=== PATIENT | male | born 1970 | race Caucasian/White ===

== ENCOUNTER 2020-09-14 16:25 | Inpatient (IN) | payer OTHER ==
[~2020-09-14] VITALS: Ht 180.3 cm; Wt 103.2 kg
[2020-09-14] MEDS ORDERED: HEPARIN 25,000 UNITS/250ML PMX 250 ML ONE (16:32)
--- NOTE | 2020-09-14 16:45 | NUR ---
PATIENT BIB EMS FROM [facility] FOR CHEST PAIN AND ELEVEATED TROPONIN AT 0.21. PER EMS PATIENT STARTED HAVING CHEST PAIN AROUND 1030 THIS MORNING THAT RADIATED TO BOTH ARMS. PATIENT FOUND TO HAVE ELEVATED TROPONIN AT ED IN [place], GIVEN 5,000 UNIT HEPARIN BOLUS AND STARTED ON HEPARIN DRIP AT 1000 UNITS PER HOUR. WAS GIVEN NITRO AND MORPHINE WHICH RELIEVED CHEST PAIN. PATIENT REPORTS CHEST PAIN IS A 1/10, CONNECTED TO MONITOR, VSS, 2 IV'S PLACED PRIOR TO ARRIVAL, FAMILY AT BEDSIDE. SPOKE WITH LORENA ABOUT HEPARIN DRIP, WOULD LIKE TO KEEP HEPARIN DRIP AT 1,000 UNITS PER HOUR.
[2020-09-14] MEDS ORDERED: SODIUM CHLORIDE FLUSH 10ML SYR IVF ONE (17:00)
[2020-09-14 17:03] LABS: ALBUMIN 3.1 g/dL (3.4-5.0); ANION GAP 16 mmol/L (5-15); CHLORIDE 106 mmol/L (98-107); CREATININE 0.85 mg/dL (0.7-1.3)
[2020-09-14] MEDS ORDERED: INSU100V8 SQ (17:15)
[2020-09-14] MEDS ORDERED: SIMV20TA19 PO (17:15)
[2020-09-14] MEDS ORDERED: DAPA10TA PO (17:15)
[2020-09-14] MEDS ORDERED: LISI-167 PO (17:15)
[2020-09-14] MEDS ORDERED: INSU100C SQ-INSULIN (17:15)
[2020-09-14 17:26] LABS: BASOPHILS % (AUTO) 0 % (0-1); EOSINOPHILS % (AUTO) 0 % (1-7); LYMPHOCYTES % (AUTO) 19 % (22-44); MEAN CORPUSCULAR HGB CONC 33.6 g/dL (33.2-36.2); MEAN PLATELET VOLUME 8.2 fL (7.4-10.4); MONOCYTES % (AUTO) 8 % (2-9); NEUTROPHILS % (AUTO) 73 % (42-75); PLATELET COUNT 263 x10^3/uL (130-400); RED BLOOD COUNT 4.84 x10^6/uL (4.38-5.82); RED CELL DISTRIBUTION WIDTH 13.3 % (9.4-14.8)
[2020-09-14] MEDS ORDERED: SODIUM CHLORIDE FLUSH 10ML SYR IVF PRN (17:30)
--- NOTE | 2020-09-14 17:33 | NUR ---
[facility] AT BEDSIDE FOR ADMISSION EVALUATION.
--- NOTE | 2020-09-14 17:55 | NUR ---
INSULIN PENS REQUESTED FROM PHARMACY.
[2020-09-14] MEDS ORDERED: ONDANSETRON 2MG/ML, 2ML IV PRN (18:00)
[2020-09-14] MEDS ORDERED: morphine SULFATE 10 MG/ML, 1ML IVPush PRN (18:00)
--- NOTE | 2020-09-14 18:03 | NUR ---
DINNER TRAY ORDERED.
--- NOTE | 2020-09-14 18:04 | NUR ---
PATIENT'S INITIAL ANTI-XA HERE IS 0.53, ACCORDING TO HEPARIN PROTOCOL NO CHANGE TO DRIP RATE AND NO BOLUS. ORDERED NEXT ANTI-XA FOR 6 HOURS.
--- NOTE | 2020-09-14 18:10 | NUR ---
REPORT GIVEN TO JEFFERY COX FOR TRANSFER OF PATIENT CARE.
--- NOTE | 2020-09-14 18:20 | NUR ---
PATIENT TRANSFERRED TO FLOOR VIA GURNEY IN STABLE CONDITION WITH DIRECTOR INSURANCE. FAMILY MEMBERS AT BESIDE.
[2020-09-14 18:42] VITALS: BP 156/91
[2020-09-14 18:49] LABS: CHOL/HDL RATIO 4.3; LDL/HDL RATIO 2.9 (0.5-3.0)
[2020-09-14] MEDS ORDERED: HEPARIN 5,000 UNITS/ML, 1ML IV ONE (19:00)
[2020-09-14] MEDS ORDERED: HEPARIN 5,000 UNITS/ML, 1ML IV PRN (19:00)
[2020-09-14] MEDS: INSULIN LISPRO 100 UNITS/ML, PEN SQ-INSULIN SCH ×2 (20:13→20:14)
[2020-09-14] MEDS: SODIUM CHLORIDE FLUSH 10ML SYR IVF SCH (20:14)
[2020-09-14] MEDS: INSULIN GLARGINE 100 UNITS/ML, PEN SQ-INSULIN SCH (20:23)
[2020-09-14] MEDS ORDERED: SIMVASTATIN 20 MG TABLET PO SCH (21:00)
[2020-09-15 00:13] VITALS: BP 156/90
[2020-09-15 05:05] LABS: BASOPHILS % (AUTO) 1 % (0-1); EOSINOPHILS % (AUTO) 2 % (1-7); LYMPHOCYTES % (AUTO) 26 % (22-44); MEAN CORPUSCULAR HEMOGLOBIN 32.5 pg (27.5-34.5); MEAN CORPUSCULAR HGB CONC 34.2 g/dL (33.2-36.2); MEAN PLATELET VOLUME 8.5 fL (7.4-10.4); MONOCYTES % (AUTO) 9 % (2-9); NEUTROPHILS % (AUTO) 62 % (42-75); PLATELET COUNT 249 x10^3/uL (130-400); RED CELL DISTRIBUTION WIDTH 13.3 % (9.4-14.8)
[2020-09-15 05:12] LABS: CHLORIDE 105 mmol/L (98-107)
[2020-09-15 05:23] LABS: ALANINE AMINOTRANSFERASE 32 U/L (12-78); ALBUMIN 2.8 g/dL (3.4-5.0); ALKALINE PHOSPHATASE 92 U/L (45-117); ANION GAP 11 mmol/L (5-15); BILIRUBIN,TOTAL 0.8 mg/dL (0.2-1.0); CREATININE 0.84 mg/dL (0.7-1.3)
[2020-09-15] MEDS: INSULIN LISPRO 100 UNITS/ML, PEN SQ-INSULIN SCH ×4 (07:36→21:10)
[2020-09-15] MEDS ORDERED: LISINOPRIL 10 MG TABLET PO SCH (09:00)
[2020-09-15 09:08] VITALS: BP 164/92
[2020-09-15] MEDS: SODIUM CHLORIDE FLUSH 10ML SYR IVF SCH ×2 (09:30→21:00)
[2020-09-15 11:59] LABS: ALANINE AMINOTRANSFERASE 40 U/L (12-78); ALBUMIN 3.2 g/dL (3.4-5.0); ANION GAP 13 mmol/L (5-15); CALCIUM 9.7 mg/dL (8.5-10.1); CHLORIDE 104 mmol/L (98-107); CREATININE 0.97 mg/dL (0.7-1.3)
[2020-09-15 12:04] LABS: ALKALINE PHOSPHATASE 101 U/L (45-117); TOTAL PROTEIN 6.9 g/dL (6.4-8.2)
[2020-09-15 14:00] VITALS: BP 137/87
[2020-09-15] MEDS: CARVEDILOL 3.125 MG TABLET PO SCH (17:28)
[2020-09-15] MEDS ORDERED: INSULIN LISPRO 100 UNITS/ML, PEN SQ-INSULIN SCH (21:00)
[2020-09-15 21:06] VITALS: BP 142/83
[2020-09-15] MEDS: INSULIN GLARGINE 100 UNITS/ML, PEN SQ-INSULIN SCH (21:10)
[2020-09-15] MEDS: ATORVASTATIN 80 MG TABLET PO SCH (21:11)
[2020-09-15] MEDS: LISINOPRIL 10 MG TABLET PO SCH (21:12)
[2020-09-16 00:12] VITALS: BP 134/86
[2020-09-16] MEDS: CARVEDILOL 3.125 MG TABLET PO SCH (05:10)
[2020-09-16 07:13] VITALS: BP 156/98
[2020-09-16] MEDS: LISINOPRIL 10 MG TABLET PO SCH ×2 (08:09→20:27)
[2020-09-16] MEDS: INSULIN LISPRO 100 UNITS/ML, PEN SQ-INSULIN SCH ×4 (08:10→20:28)
[2020-09-16] MEDS: SODIUM CHLORIDE FLUSH 10ML SYR IVF SCH ×2 (08:11→21:00)
[2020-09-16] MEDS: HEPARIN 25,000 UNITS/250ML PMX 250 ML IV PRN (09:22)
[2020-09-16] MEDS: ASPIRIN 81 MG TABLET EC PO SCH (10:45)
[2020-09-16 14:13] VITALS: BP 144/79
[2020-09-16 14:14] VITALS: BP_SYST 134; BP_SYST 144; BP_DIAS 81; BP_DIAS 83
[2020-09-16] MEDS: CARVEDILOL 6.25 MG TABLET PO SCH (17:38)
[2020-09-16 20:20] VITALS: BP 144/85
[2020-09-16] MEDS: ATORVASTATIN 80 MG TABLET PO SCH (20:27)
[2020-09-16] MEDS: ACETAMINOPHEN 325 MG TABLET PO PRN (20:27)
[2020-09-16] MEDS: INSULIN GLARGINE 100 UNITS/ML, PEN SQ-INSULIN SCH (20:28)
[2020-09-17 00:40] VITALS: BP 146/86
[2020-09-17 05:26] VITALS: BP 158/89
[2020-09-17] MEDS: ASPIRIN 81 MG TABLET EC PO SCH (05:28)
[2020-09-17] MEDS: CARVEDILOL 6.25 MG TABLET PO SCH ×2 (05:28→17:38)
[2020-09-17] MEDS: HEPARIN 25,000 UNITS/250ML PMX 250 ML IV PRN (06:09)
[2020-09-17 07:09] VITALS: BP 173/100
[2020-09-17] MEDS: INSULIN LISPRO 100 UNITS/ML, PEN SQ-INSULIN SCH ×4 (07:51→20:28)
[2020-09-17] MEDS: LISINOPRIL 10 MG TABLET PO SCH ×2 (07:51→20:30)
[2020-09-17] MEDS: SODIUM CHLORIDE FLUSH 10ML SYR IVF SCH ×2 (07:52→20:30)
[2020-09-17 09:15] VITALS: BP_SYST 146; BP_SYST 159; BP_DIAS 93; BP_DIAS 96
[2020-09-17] MEDS ORDERED: MIDAZOLAM 1 MG/ML, 5ML ONE ×2 (11:31→14:00)
[2020-09-17] MEDS ORDERED: FENTANYL PF 100 MCG/2ML ONE (11:31)
[2020-09-17] MEDS ORDERED: VERAPAMIL 2.5 MG/ML, 2ML ONE (11:32)
[2020-09-17] MEDS ORDERED: HEPARIN 1,000 UNITS/ML, 10ML ONE (11:32)
[2020-09-17] MEDS ORDERED: LIDOCAINE-MPF 1%, 5ML ONE (11:32)
[2020-09-17] MEDS ORDERED: TICAGRELOR 90 MG TABLET ONE (11:32)
[2020-09-17] MEDS ORDERED: BIVALIRUDIN 250 MG ONE ×2 (11:32→12:43)
[2020-09-17] MEDS ORDERED: PRASUGREL 10 MG TABLET ONE (13:10)
[2020-09-17] MEDS: ACETAMINOPHEN 325 MG TABLET PO PRN (13:45)
[2020-09-17] MEDS ORDERED: NITROGLYCERIN 0.4 MG/SPRAY SL PRN (14:00)
[2020-09-17] MEDS ORDERED: LIDOCAINE 1%, 20ML ONE (14:00)
[2020-09-17] MEDS ORDERED: FENTANYL PF 250 MCG/5ML ONE (14:00)
[2020-09-17] MEDS ORDERED: NITROGLYCERIN 0.4 MG BOTTLE (25 TABS) SL PRN (14:00)
[2020-09-17] MEDS ORDERED: BIVALIRUDIN 250 MG in SODIUM CHLORIDE 0.9% 50 ML IV SCH (14:00)
[2020-09-17 14:49] VITALS: BP 132/83
[2020-09-17 19:48] VITALS: BP 157/79
[2020-09-17] MEDS: ATORVASTATIN 80 MG TABLET PO SCH (20:30)
[2020-09-17] MEDS ORDERED: INSULIN GLARGINE 100 UNITS/ML, PEN SQ-INSULIN SCH (21:00)
[2020-09-18 01:13] VITALS: BP 141/84
[2020-09-18 04:49] LABS: ANION GAP 9 mmol/L (5-15); CALCIUM 8.5 mg/dL (8.5-10.1); CHLORIDE 112 mmol/L (98-107); CREATININE 0.78 mg/dL (0.7-1.3)
[2020-09-18] MEDS: ASPIRIN 81 MG TABLET EC PO SCH (05:14)
[2020-09-18] MEDS: CARVEDILOL 6.25 MG TABLET PO SCH (05:14)
[2020-09-18 07:31] VITALS: BP 150/95
[2020-09-18] MEDS: LISINOPRIL 10 MG TABLET PO SCH (08:02)
[2020-09-18] MEDS: SODIUM CHLORIDE FLUSH 10ML SYR IVF SCH (08:03)
[2020-09-18] MEDS: INSULIN LISPRO 100 UNITS/ML, PEN SQ-INSULIN SCH ×2 (08:03→11:00)
[2020-09-18] MEDS ORDERED: INSULIN GLARGINE 100 UNITS/ML, PEN SQ-INSULIN SCH (09:00)
[2020-09-18] MEDS ORDERED: PRASUGREL 10 MG TABLET PO SCH (09:00)
[2020-09-18] MEDS ORDERED: LISI-167 PO (10:38)
[2020-09-18] MEDS ORDERED: INSU100I13 SQ-INSULIN ×2 (10:38)
[2020-09-18] MEDS ORDERED: SIMV20TA19 PO (10:38)
[2020-09-18] MEDS ORDERED: PRAS10TA4 PO (10:38)
[2020-09-18] MEDS ORDERED: ASPI81TA45 PO (10:38)
[2020-09-18] MEDS ORDERED: CARV6.2512 PO (10:38)
== END 2020-09-18 12:08 | disposition home or self-care (01) | DRG 246 ==
LOC: ED 17:48 → EDIP 18:22 → 5SO 18:26 → DCLOUNGE 09-18 11:55
PROVIDERS: ADMIT Internal Medicine; ATTEND Internal Medicine
PROC: 027237Z Dilation of Coronary Artery, Three Arteries with Four or More Drug-eluting Intraluminal Devices, Percutaneous Approach (ICD-10-PCS; principal; 2020-09-17)
PROC: B240ZZ3 Ultrasonography of Single Coronary Artery, Intravascular (ICD-10-PCS; 2020-09-17)
PROC: 4A023N7 Measurement of Cardiac Sampling and Pressure, Left Heart, Percutaneous Approach (ICD-10-PCS; 2020-09-17)
PROC: B2151ZZ Fluoroscopy of Left Heart using Low Osmolar Contrast (ICD-10-PCS; 2020-09-17)
DX: I21.4 Non-ST elevation (NSTEMI) myocardial infarction (principal); E78.5 Hyperlipidemia, unspecified; E11.65 Type 2 diabetes mellitus with hyperglycemia; E66.01 Morbid (severe) obesity due to excess calories; F41.9 Anxiety disorder, unspecified; I10 Essential (primary) hypertension; Z72.0 Tobacco use; Z79.82 Long term (current) use of aspirin; Z79.899 Other long term (current) drug therapy; Z82.61 Family history of arthritis; Z83.3 Family history of diabetes mellitus; Z86.16 Personal history of COVID-19; Z68.31 Body mass index [BMI] 31.0-31.9, adult; Z88.0 Allergy status to penicillin
CPT/HCPCS: 36415; 99285; J3490; 80048; 80053; 80061; 82040; 82962; 83036; 83880; 84484; 85025; 85520; 93005; 93306; G0378; J0583; J1644; J2250; J3010; J1815